=== PATIENT | male | born 1945 | race African-American/Black ===

== ENCOUNTER → 2019-11-05 | Emergency (ER) | payer OTHER ==
[~2019-11-05] VITALS: Ht 177.8 cm; Wt 82.0 kg
[~2019-11-05] MED LIST: ASPIRIN 81MG TABLET PO ONE; SODIUM CHLORIDE 0.9% 1,000 ML IV ONE
[2019-11-05 13:23] LABS: CHLORIDE 112 mEq/L (98-107)
[2019-11-05 13:34] LABS: BASOPHILS % 0.6 % (0.0-2.0); EOSINOPHILS % 0.8 % (0.0-5.0); HEMATOCRIT. 35.2 % (42.0-52.0); HEMOGLOBIN. 12.1 g/dL (14.0-18.0); MEAN CORPUSCULAR HEMOGLOBIN 29.4 pg (28.0-32.0); MEAN CORPUSCULAR VOLUME 85.4 fL (80.0-94.0); MEAN PLATELET VOLUME 7.9 fl (7.4-10.4); MONOCYTES % 5.8 % (2.0-8.0); NEUTROPHILS % 80.8 % (40.0-76.0); PLATELET 207 x1000/uL (130-400); RED BLOOD CELL COUNT 4.13 mill/uL (4.7-6.1); RED CELL DISTRIBUTION WIDTH 15.1 % (11.6-14.6)
[2019-11-05 14:35] VITALS: BP 124/68
== END | disposition left against medical advice (07) ==
LOC: ER 11:59 → ENRESERV 20:38 → CANBEDREQ 11-06 09:44
DX: R55 Syncope and collapse (principal)
CPT/HCPCS: 36415; 71045; 80053; 83880; 84484; 85025; 93005; 96360; 99285; J7030